=== PATIENT | male | born 1960 | race Caucasian/White ===

== ENCOUNTER → 2019-08-26 14:35 | Outpatient (CLI) | payer BC, SELFPAY ==
--- NOTE | ~2019-08-26 | XR_ITS ---
XR thoracic spine 3V 08/26/2019 14:57 Indication: Low back pain Procedure: 3 views thoracic spine Comparison: No prior studies for comparison. Findings: There is levoscoliosis of the thoracic spine. Mild thoracic spondylosis. No acute fracture or traumatic malalignment. No paraspinal soft tissue abnormality. Pedicles intact. Impression: 1: Mild thoracic spondylosis with levoscoliosis. Reviewed, dictated and finalized at location B. S [employer] Impression: 1: Mild thoracic spondylosis with levoscoliosis.
== END ==
PROVIDERS: PCP Emergency Medicine; Visit Provider Emergency Medicine
DX: M47.894 Other spondylosis, thoracic region (principal)
CPT/HCPCS: 72072

== ENCOUNTER 2019-12-26 08:56 | Outpatient (CLI) | payer BC, SELFPAY | END 2019-12-26 08:57 | disposition home or self-care (01) | LOC: ANHCOVIDDT 08:56 | PROVIDERS: PCP Emergency Medicine; Visit Provider Internal Medicine Gastroenterology | DX: Z01.818 Encounter for other preprocedural examination (principal); Z11.59 Encounter for screening for other viral diseases | CPT/HCPCS: 87635; C9803; U0003 ==

== ENCOUNTER 2019-12-29 02:23 | Day surgery (SDC) | payer BC, SELFPAY ==
[2019-11-04 12:55] VITALS: BMI 23.5
[2019-12-26 13:09] VITALS: BMI 23.5
[2019-12-29 08:58] VITALS: BP 106/83; PULSE 58; RESP 18; TEMP 36.3; O2SAT 100
--- NOTE | 2019-12-29 09:02 | WPDANESEPPF ---
Anes - Initial Pre Proc Eval Procedure: Operation Date: 12/29/19 09:30 Proposed Procedures p Esophagogastroduodenoscopy with Small Bowel Enteroscopy - Brijesh Morales MD Date/Time: 12/29/19 09:02 Surgeon: Brijesh Morales MD Pre Op Diagnosis: blood loss anemia Patient Data Age: 59 Gender: M Height: 1.68 m Weight: 68.4 kg Last Vital Signs Temp 36.3 C L 12/29/19 08:58 Pulse 58 L 12/29/19 08:58 Resp 18 12/29/19 08:58 BP 106/83 12/29/19 08:58 Pulse Ox 100 12/29/19 08:58 Allergies Allergy/AdvReac Type Severity Reaction Status Date / Time No Known Allergies Allergy Verified 12/29/19 08:53 Home Medications Medication Instructions Recorded Confirmed Type simvastatin 40 mg PO DAILY 08/29/19 12/29/19 History Patient hx anesthesia problems: none Family hx anesthesia problems: none PMFSH Past Medical History Medical History (Updated 08/30/19 @ 08:44 by Ishan Kraus MD) Epistaxis History of kidney stones Hx of hemorrhoids Hypercholesteremia MVP (mitral valve prolapse) Never confirmed by echo. Surgical History Surgical History (Updated 08/30/19 @ 08:44 by Ishan Kraus MD) History of hemorrhoidectomy Hx of shoulder surgery Rotator Cuff Repair Family History Family History (Updated 08/30/19 @ 08:39 by Ishan Kraus MD) Father , SMOKER, AT 66 Cerebrovascular accident Mother , TYPE 1 DIABETIC, SMOKER, AT 68 Acute myocardial infarction Social History Social History Smoking status: Never smoker Alcohol intake: never Substance use: never Gender identity (if verbalized by the patient): Male Spiritual care concerns: No Agree to blood products: Yes Anes - Eval Final PreProcedure Day of Procedure 12/29/19 09:02 Patient weight: normal Heart: regular rate and rhythm Lungs: clear to auscultation and normal air movement Airway: Mallampati scale class III Neurological: alert and oriented Last oral intake: >/= 8 hours ASA classification: III Emergent: no Anesthetic plan: proceed Anesthesia type and monitoring: general GIVS and standard monitoring Informed Consent: The patient's anesthetic plan and its attendant risks and benefits were discussed with the patient/family/POA. Questions were solicited and answers provided to the satisfaction of the patient/family/POA.
[2019-12-29] MEDS: LACTATED RINGERS 1,000 ML 150 ML IV CONT (09:09)
--- NOTE | 2019-12-29 09:10 | P.HP_ITS ---
History of Present Illness History of Present Illness Consent: Risks, benefits, and alternatives have been discussed and questions answered. Patient agrees to proceed with procedure. Chief complaint: blood loss anemia Narrative: Benito Jonas is a 59 year old W male referred for EGD possible small- bowel enteroscopy for evaluation of iron deficiency anemia. Patient developed symptoms of lightheadedness dizziness weakness the end of July or early August this year. Was found to have an iron deficiency anemia hemoglobin 8.7 hematocrit 27.9. Patient states that 6 months prior to this time he went on a Aleyda diet. He did lose 35 lb. He has no GI symptoms such as nausea vomiting hematemesis melena change in bowel pattern. In fact the patient this screening colonoscopy one year ago. No abnormalities were seen however the bowel prep was not ideal certainly small lesions particularly AVMs could have been missed. No food intolerances no family history of celiac sprue. Patient denies any nonsteroidal inflammatory drugs. [facility] Past Medical History Medical History Epistaxis History of kidney stones Hx of hemorrhoids Hypercholesteremia MVP (mitral valve prolapse) Never confirmed by echo. Surgical History Surgical History History of hemorrhoidectomy Hx of shoulder surgery Rotator Cuff Repair Family History Family History Father , SMOKER, AT 66 Cerebrovascular accident Mother , TYPE 1 DIABETIC, SMOKER, AT 68 Acute myocardial infarction Social History Social History Smoking status: Never smoker Alcohol intake: never Substance use: never Gender identity (if verbalized by the patient): Male Spiritual care concerns: No Agree to blood products: Yes Meds Home Medications and Allergies Home Medications Medication Instructions Recorded Confirmed Type simvastatin 40 mg PO DAILY 08/29/19 12/29/19 History Allergies Allergy/AdvReac Type Severity Reaction Status Date / Time No Known Allergies Allergy Verified 12/29/19 08:53 Vital Signs Vital Signs - 24 hr 12/29/19 08:58 Temperature 36.3 C L Pulse Rate 58 L Respiratory Rate 18 Blood Pressure 106/83 Pulse Oximetry 100 Exam Const: Orientation/consciousness: patient oriented x3 Resp: Auscultation: clear to auscultation bilaterally Cardio: Rate: regular rate Rhythm: regular rhythm Heart sounds: no murmurs GI: GI Palp: Yes Soft to palpation, No Tenderness to palpation present (GI), Yes No hepatosplenomegaly present and No Palpable mass present Auscultation: normal bowel sounds Neuro: General: patient oriented x3 and no focal motor deficits Extrem: General: no pedal edema Assessment and Plan Additional Plan Gastroscopy/possible small-bowel enteroscopy for evaluation of iron deficiency anemia
[2019-12-29 10:00] VITALS: BP 93/57; PULSE 59; RESP 18; O2SAT 97
[2019-12-29 10:10] VITALS: BP 92/61; PULSE 55; RESP 18; O2SAT 98
[2019-12-29 10:20] VITALS: BP 98/61; PULSE 48; RESP 18; O2SAT 98
== END 2019-12-29 10:28 | disposition home or self-care (01) ==
PROVIDERS: PCP Emergency Medicine; Visit Provider Internal Medicine Gastroenterology
PROC: 0DJ08ZZ Inspection of Upper Intestinal Tract, Via Natural or Artificial Opening Endoscopic (ICD-10-PCS; CPT 43235; principal; 2019-12-29 09:30)
DX: D50.9 Iron deficiency anemia, unspecified (principal); K31.4 Gastric diverticulum; I34.1 Nonrheumatic mitral (valve) prolapse; E78.00 Pure hypercholesterolemia, unspecified
CPT/HCPCS: 43239; 87081; 88305; J2704; J7120

== ENCOUNTER 2020-07-09 07:02 | Outpatient (NON) | payer BC, SELFPAY ==
[2020-07-09 20:46] LABS: SARS-CoV-2 RNA PCR Negative
== END 2020-07-09 07:03 ==
LOC: ANHCOVIDDT 07:07
PROVIDERS: PCP Emergency Medicine; Visit Provider Emergency Medicine
DX: R09.89 Other specified symptoms and signs involving the circulatory and respiratory systems (principal); Z20.828 Contact with and (suspected) exposure to other viral communicable diseases
CPT/HCPCS: 87635; C9803; U0003

== ENCOUNTER → 2020-12-15 09:30 | Outpatient (CLI) | payer BC, SELFPAY ==
--- NOTE | ~2020-12-15 | XR_ITS ---
XR lumbar spine 2-3V 12/15/2020 10:00 Indication: Low back pain Procedure: 3 views lumbar spine Comparison: 2 views lumbar spine Findings: There is mild disc narrowing at L4-5 and L5-S1. There is grade 1 degenerative spondylolisth esis at L5-S1. There are facet degenerative changes at these levels. No fracture or traumatic malalig nment. There is dextroscoliosis of the thoracolumbar spine. Impression: 1: Mild lumbar spondylosis with dextroscoliosis. Reviewed, dictated and finalized at location A. Impression: 1: Mild lumbar spondylosis with dextroscoliosis.
== END ==
PROVIDERS: PCP Emergency Medicine; Visit Provider Emergency Medicine
DX: M54.41 Lumbago with sciatica, right side (principal); M47.816 Spondylosis without myelopathy or radiculopathy, lumbar region; M41.86 Other forms of scoliosis, lumbar region
CPT/HCPCS: 72100